=== PATIENT | female | born 1985 | race Caucasian/White ===

== ENCOUNTER → 2017-01-05 | Outpatient (REF) | payer OTHER | LOC: M LAB REF 14:42 | PROVIDERS: ATTEND Physician Assistant | DX: R30.0 Dysuria (principal) ==

== ENCOUNTER → 2017-01-24 | Outpatient (CLI) | payer OTHER ==
--- NOTE | 2017-01-24 11:30 | REP ---
MR BRAIN WITHOUT AND WITH CONTRAST: HISTORY: Multiple sclerosis. CONTRAST: ProHance 18 mL. COMPARISON: Multiple areas of increased signal intensity on T2-weighted images are present in the periventricular and subcortical white matter. Additional areas of increased signal intensity are present in the corpus callosum. These are unchanged compared to the previous study. There are no new areas of abnormal signal intensity. There is no intraparenchymal hemorrhage, infarct, mass or midline shift. There is no abnormal enhancement. The ventricular system is normal in appearance. There is no extracerebral collection. The sinuses are clear. IMPRESSION: The above findings are consistent with multiple sclerosis that are unchanged compared the previous study. Signed by Severino Mcmillan MD 01/24/2017 11:42 A
== END ==
LOC: M RAD 09:42
PROVIDERS: ATTEND Physician Assistant
DX: G35 Multiple sclerosis (principal)

== ENCOUNTER → 2017-06-12 | Outpatient (CLI) | payer OTHER ==
[~2017-06-12] MED LIST: PROHANCE 279.3MG/ML 15ML VIAL (A9576) As Ordered ONE; PROHANCE 279.3MG/ML 5ML VIAL (A9576) As Ordered ONE
--- NOTE | 2017-06-12 20:00 | REPUSA ---
MRI cervical spine without contrast Clinical statement: Pain. Technique: Multiecho multiplanar MRI images of the cervical spine were obtained without administratio n of contrast. No comparison is available. Findings: The cervical vertebral bodies are in satisfactory position and alignment. No fractures or d islocations are demonstrated. Normal heterogeneous bone marrow signal is noted. No osseous tumors are seen. The visualized portions of the posterior fossa are unremarkable. The cervical cranial junction is intact. The intervertebral disc spaces and heights are well-maintained. The facet joints are inta ct without evidence of subluxation. The cervical spinal cord demonstrates normal signal and contour. The surrounding soft tissues are within normal limits. At the cervical vertebral levels, there is no evidence of disc herniation or protrusion. There is no central canal stenosis. The neural foramina are patent bilaterally. Impression: Unremarkable MRI examination of the cervical spine.
--- NOTE | 2017-06-12 20:00 | REPUSA ---
MRI of the thoracic spine without contrast Clinical statement: Pain. Technique: Multiecho multiplanar MRI images of the thoracic spine were obtained without administratio n of contrast. No comparison is available. Findings: The thoracic vertebral bodies are in satisfactory position and alignment. No fractures or d islocations are demonstrated. The bone marrow appears unremarkable. Intervertebral disc spaces are we ll maintained. There is no evidence of disc herniation or protrusion. The neural foramen are patent. The facet joints are intact. The surrounding soft tissues are within normal limits. Impression: Unremarkable MRI examination of the thoracic spine.
== END ==
LOC: M RAD 16:33
PROVIDERS: ATTEND Nurse Practitioner
DX: G35 Multiple sclerosis (principal)
CPT/HCPCS: 72156; 72157; A9576

== ENCOUNTER → 2019-10-08 | Outpatient (CLI) | payer OTHER ==
--- NOTE | 2019-10-08 12:14 | REPVR ---
PROCEDURE INFORMATION: Exam: MR Head Without and With Contrast Exam date and time: 10/08/2019 11:43 AM Age: 34 years old Clinical indication: Condition or disease; Multiple sclerosis; Patient HX: Yearly f/u; Additional info: Ms TECHNIQUE: Imaging protocol: MR of the head without and with intravenous contrast. 3D rendering: MIP and/or 3D reconstructed images were created by the technologist. Contrast material: PROHANCE; Contrast volume: 20 ml; Contrast route: IV; COMPARISON: MRI-Brain W/O FOLL BY WITH 01/24/2017 9:46 AM FINDINGS: Brain: There is no extra-axial collection or intra-axial mass. Mild diffuse volume loss is out of proportion to what is expected for patient age. As before, there are scattered foci T2/FLAIR hyperintensity within the periventricular and subcortical white matter, many with a perivenular distribution compatible with submitted history of demyelinating disease. There is some corresponding T1 hypointensity, particularly along the right de la torre radiata, compatible with axonal loss. There is no enhancement to suggest active demyelination. Ventricles: Ventricles are normal in size and configuration for age. Bones/joints: Unremarkable. Soft tissues: Unremarkable. Sinuses: Normal as visualized. No acute sinusitis. Mastoid air cells: Normal as visualized. No mastoid effusion. Orbits: Unremarkable. IMPRESSION: Findings compatible with demyelinating disease. Stable plaque burden. Electronically signed by: Isabela Martinez On 10/08/2019 12:13:48 PM
--- NOTE | 2019-10-08 12:20 | REPVR ---
PROCEDURE INFORMATION: Exam: MR Cervical Spine Without and With Contrast Exam date and time: 10/08/2019 11:43 AM Age: 34 years old Clinical indication: Condition or disease; Other: Ms; Patient HX: Yearly f/u TECHNIQUE: Imaging protocol: Multiplanar magnetic resonance images of the cervical spine without and with intravenous contrast. Contrast material: PROHANCE; Contrast volume: 20 ml; Contrast route: IV; COMPARISON: MRI-C SPINE W/O FOLL BY WITH 06/12/2017 5:34 PM FINDINGS: Vertebrae: There is straightening of the normal cervical lordosis. There is no fracture or listhesis. Normal vertebral body alignment and heights are preserved. Spinal cord: There is a tiny focus of T2/FLAIR hyperintensity situated along the ventral margin of C1. There is no enhancement to suggest active demyelination. C2-C3: There is a shallow disc osteophyte complex. There is moderate facet hypertrophy. There is moderate to severe bilateral neural foraminal narrowing. C3-C4: There is a shallow disc osteophyte complex. There is mild facet hypertrophy. There is moderate to severe left neural foraminal narrowing. C4-C5: No significant disc disease. No significant spinal stenosis. C5-C6: There is a shallow disc osteophyte complex. There is mild facet hypertrophy. The spinal canal and neural foramina are patent. C6-C7: There is a shallow disc osteophyte complex. There is mild facet hypertrophy. The spinal canal and neural foramina are patent. C7-T1: There is a shallow disc osteophyte complex. The spinal canal and neural foramina are patent. Vertebral arteries: Expected flow voids in the vertebral arteries. Soft tissues: Unremarkable. IMPRESSION: Punctate focus of T2 hyperintensity along the ventral margin of the cord at the C1 level, potentially a tiny focus of the myelination versus artifact. This was not apparent on the preceding examination. There is no enhancement to suggest active demyelination. Electronically signed by: Isabela Martinez On 10/08/2019 12:20:32 PM
== END ==
LOC: M RAD 09:51
PROVIDERS: ATTEND Nurse Practitioner
DX: G35 Multiple sclerosis (principal); M25.78 Osteophyte, vertebrae
CPT/HCPCS: 70553; 72156; A9576

== ENCOUNTER → 2020-11-16 | Outpatient (CLI) | payer OTHER ==
[~2020-11-16] MED LIST changes: -PROHANCE 279.3MG/ML 15ML VIAL (A9576) As Ordered ONE; +PROHANCE 279.3MG/ML 15ML VIAL As Ordered ONE; -PROHANCE 279.3MG/ML 5ML VIAL (A9576) As Ordered ONE; +PROHANCE 279.3MG/ML 5ML VIAL As Ordered ONE
--- NOTE | 2020-11-16 19:15 | REPVR ---
PROCEDURE INFORMATION: Exam: MR Cervical Spine Without and With Contrast Exam date and time: 11/16/2020 4:35 PM Age: 35 years old Clinical indication: Condition or disease; Other: Ms; Additional info: Multiple sclerosis TECHNIQUE: Imaging protocol: Multiplanar magnetic resonance images of the cervical spine without and with contrast. Contrast material: PROHANCE; Contrast volume: 20 ml; Contrast route: INTRAVENOUS (IV); COMPARISON: MRI-C SPINE W/O FOLL BY WITH 10/08/2019 10:52 AM FINDINGS: There is patient motion. Nonspecific straightening. Vertebral body height and AP alignment is preserved. Negative for discitis/osteomyelitis. No definite abnormal cord signal or cord expansion. No epidural fluid collection. No pathologic enhancement. C2-C3: No significant central canal stenosis. Left greater than right uncinate spurring and facet joint arthropathy contributing to [id number] right and moderate to severe left foraminal stenosis. C3-C4: No significant central canal stenosis. Left greater than right uncinate spurring and facet joint arthropathy contribute to moderate left foraminal stenosis. C4-C5: No significant central or foraminal stenosis. C5-C6: Minimal disc osteophyte complex without significant central or foraminal stenosis. C6-C7: Mild disc osteophyte complex with superimposed shallow left central protrusion. There is mild central canal stenosis. No significant foraminal stenosis. C7-T1: No significant central or foraminal stenosis. IMPRESSION: 1. Patient motion without definite pathologic cord signal. 2. Degenerative findings as above including mild central canal stenosis at C6-C7. No high-grade central canal stenosis or cord compression. Electronically signed by: Antoine Haider On 11/16/2020 19:15:43 PM
--- NOTE | 2020-11-16 19:19 | REPVR ---
PROCEDURE INFORMATION: Exam: MR Head Without and With Contrast Exam date and time: 11/16/2020 4:35 PM Age: 35 years old Clinical indication: Condition or disease; Multiple sclerosis TECHNIQUE: Imaging protocol: MR of the head without and with intravenous contrast. Contrast material: PROHANCE; Contrast volume: 20 ml; Contrast route: INTRAVENOUS (IV); COMPARISON: MRI-Brain W/O FOLL BY WITH 10/08/2019 10:36 AM FINDINGS: Major vascular flow voids at the skull base are preserved. No extra-axial fluid collection. No hydrocephalus. No midline shift or intracranial mass effect. White matter lesions are stable in the interval. No cerebral edema. No diffusion restriction. No pathologic intracranial enhancement. Visualized paranasal sinuses and mastoid air cells are clear. IMPRESSION: 1. Findings of demyelination, stable from prior examination. 2. No evidence of active demyelination. Electronically signed by: Antoine Haider On 11/16/2020 19:19:30 PM
== END ==
LOC: M RAD 16:29
PROVIDERS: ATTEND Physician Assistant
DX: G35 Multiple sclerosis (principal); M25.78 Osteophyte, vertebrae
CPT/HCPCS: 70553; 72156; A9576

== ENCOUNTER → 2021-05-20 | Outpatient (CLI) | payer OTHER ==
[~2021-05-20] MED LIST changes: -PROHANCE 279.3MG/ML 15ML VIAL As Ordered ONE; +PROHANCE 279.3MG/ML 15ML VIAL ONE; -PROHANCE 279.3MG/ML 5ML VIAL As Ordered ONE; +PROHANCE 279.3MG/ML 5ML VIAL ONE
--- NOTE | 2021-05-20 14:09 | REPVR ---
PROCEDURE INFORMATION: Exam: MR Cervical Spine Without and With Contrast Exam date and time: 05/20/2021 11:08 AM Age: 36 years old Clinical indication: Condition or disease; Other: Ms TECHNIQUE: Imaging protocol: Multiplanar magnetic resonance images of the cervical spine without and with contrast. Contrast material: PROHANCE; Contrast volume: 20 ml; Contrast route: INTRAVENOUS (IV); COMPARISON: MRI-C SPINE W/O FOLL BY WITH 11/16/2020 5:12 PM FINDINGS: Vertebrae: There is no acute fracture or listhesis. Spinal cord: The cervicomedullary junction and cervical cord appear grossly normal. There is no abnormal enhancement. C2-C3: There is a shallow disc osteophyte complex. There is mild facet hypertrophy. There is moderate to severe bilateral neural foraminal narrowing. C3-C4: There is a shallow disc osteophyte complex. There is moderate facet hypertrophy. There is severe left neural foraminal narrowing. C4-C5: There is a shallow disc osteophyte complex. There is moderate facet hypertrophy. The spinal canal and neural foramina are patent. C5-C6: There is a shallow disc osteophyte complex. There is moderate facet hypertrophy. The spinal canal and neural foramina are patent. C6-C7: There is a shallow disc osteophyte complex with a superimposed left paracentral/subarticular protrusion and annular tear. This focally indents the ventral thecal sac. There is mild facet hypertrophy. The neural foramina are patent. C7-T1: No significant disc disease. No significant spinal stenosis. Soft tissues: Unremarkable. Vertebral arteries: Expected flow voids in the vertebral arteries. IMPRESSION: 1. No evidence of demyelinating disease within the cervical cord. 2. Degenerative disc disease and spondylosis. Electronically signed by: Isabela Martinez On 05/20/2021 14:09:24 PM
--- NOTE | 2021-05-20 14:13 | REPVR ---
PROCEDURE INFORMATION: Exam: MR Head Without and With Contrast Exam date and time: 05/20/2021 11:08 AM Age: 36 years old Clinical indication: Condition or disease; Multiple sclerosis; Additional info: Ms TECHNIQUE: Imaging protocol: MR of the head without and with intravenous contrast. Contrast material: PROHANCE; Contrast volume: 20 ml; Contrast route: INTRAVENOUS (IV); COMPARISON: MRI-Brain W/O FOLL BY WITH 11/16/2020 5:12 PM FINDINGS: Brain: There is no extra-axial collection or intra-axial mass. There are foci of increased T2/FLAIR hyperintensity within the periventricular and juxtacortical white matter, many with a perivenular distribution, compatible with submitted history of demyelinating disease. There is a new demyelinating plaque within the left posterior centrum semiovale with associated enhancement, compatible with active demyelination. Cerebral ventricles: Normal. No ventriculomegaly. Bones/joints: Unremarkable. Paranasal sinuses: Normal as visualized. No acute sinusitis. Mastoid air cells: Normal as visualized. No mastoid effusion. Orbital cavity: Unremarkable. Soft tissues: Unremarkable. IMPRESSION: Findings compatible with submitted history of demyelinating disease. New demyelinating plaque within the left posterior centrum semiovale demonstrates enhancement, compatible with active demyelination. Electronically signed by: Isabela Martinez On 05/20/2021 14:12:46 PM
== END ==
LOC: M PLAIMG 09:25
PROVIDERS: ATTEND Physician Assistant
DX: G35 Multiple sclerosis (principal)
CPT/HCPCS: 70553; 72156; A9576

== ENCOUNTER 2021-08-03 10:30 | Outpatient (CLI) | payer OTHER ==
[~2021-08-03] VITALS: Ht 160 cm; Wt 98.6 kg
[~2021-08-03 10:30] MED LIST changes: +ALBUTEROL SULFATE 2.5 MG/0.5 ML INH NEB SOLN INH PRN; +EPINEPHrine INJ 1 MG/ML 1ML AMP IM PRN; +NS 1,000 ML IV SCH; -PROHANCE 279.3MG/ML 15ML VIAL ONE; -PROHANCE 279.3MG/ML 5ML VIAL ONE; +diphenhydrAMINE 50MG/ML VIAL (J1200) IV PRN; +methylPREDNISolone 125MG 2ML VIAL IV PRN
[2021-08-03 10:40] VITALS: BP 138/75
[2021-08-03] MEDS ORDERED: NATALIZUMAB OVER 1 HOUR IV ONE ×2 (11:00)
[2021-08-03] MEDS ORDERED: BUPR300T92 PO (11:09)
[2021-08-03] MEDS ORDERED: SYNT125T PO (11:09)
[2021-08-03] MEDS ORDERED: FLUO20CA22 PO (11:09)
[2021-08-03 11:48] VITALS: BP 138/75
[2021-08-03] MEDS ORDERED: ALLE1TAB23 PO (12:28)
[2021-08-03 12:55] VITALS: BP 135/77
== END 2021-08-03 12:55 | disposition home or self-care (01) ==
LOC: M INFU 10:30
PROVIDERS: ATTEND Physician Assistant
DX: G35 Multiple sclerosis (principal)
CPT/HCPCS: 96365; J2323

== ENCOUNTER 2021-08-31 11:01 | Outpatient (CLI) | payer OTHER ==
[~2021-08-31] VITALS: Ht 160 cm; Wt 98.6 kg
[~2021-08-31 11:01] MED LIST changes: +ALLE1TAB23 PO; +BUPR300T92 PO; +FLUO20CA22 PO; +NATALIZUMAB OVER 1 HOUR IV ONE; +SYNT125T PO
[2021-08-31 11:20] VITALS: BP 146/82
[2021-08-31 13:30] VITALS: BP 128/72
== END 2021-08-31 13:30 | disposition home or self-care (01) ==
LOC: M INFU 11:01
PROVIDERS: ATTEND Physician Assistant
DX: G35 Multiple sclerosis (principal)
CPT/HCPCS: 96365; J2323

== ENCOUNTER 2021-09-29 10:40 | Outpatient (CLI) | payer OTHER ==
[~2021-09-29] VITALS: Ht 162.6 cm; Wt 100.0 kg
[~2021-09-29 10:40] MED LIST changes: -ALBUTEROL SULFATE 2.5 MG/0.5 ML INH NEB SOLN INH PRN; -EPINEPHrine INJ 1 MG/ML 1ML AMP IM PRN; -NATALIZUMAB OVER 1 HOUR IV ONE; -NS 1,000 ML IV SCH; -diphenhydrAMINE 50MG/ML VIAL (J1200) IV PRN; -methylPREDNISolone 125MG 2ML VIAL IV PRN
[2021-09-29 10:53] VITALS: BP 128/71
[2021-09-29] MEDS ORDERED: methylPREDNISolone 125MG 2ML VIAL IV PRN (11:00)
[2021-09-29] MEDS ORDERED: diphenhydrAMINE 50MG/ML VIAL (J1200) IV PRN (11:00)
[2021-09-29] MEDS ORDERED: NS 1,000 ML IV SCH (11:00)
[2021-09-29] MEDS ORDERED: NATALIZUMAB OVER 1 HOUR IV ONE ×2 (11:00)
[2021-09-29] MEDS ORDERED: EPINEPHrine INJ 1 MG/ML 1ML AMP IM PRN (11:00)
[2021-09-29] MEDS ORDERED: ALBUTEROL SULFATE 2.5 MG/0.5 ML INH NEB SOLN INH PRN (11:00)
[2021-09-29 12:07] VITALS: BP 126/71
== END 2021-09-29 12:10 | disposition home or self-care (01) ==
LOC: M INFU 10:40
PROVIDERS: ATTEND Physician Assistant
DX: G35 Multiple sclerosis (principal)
CPT/HCPCS: 96365; J2323

== ENCOUNTER 2021-10-26 14:38 | Outpatient (CLI) | payer OTHER ==
[~2021-10-26] VITALS: Ht 162.6 cm; Wt 100.0 kg
[~2021-10-26 14:38] MED LIST changes: +ALBUTEROL SULFATE 2.5 MG/0.5 ML INH NEB SOLN INH PRN; +EPINEPHrine INJ 1 MG/ML 1ML AMP IM PRN; +diphenhydrAMINE 50MG/ML VIAL (J1200) IV PRN; +methylPREDNISolone 125MG 2ML VIAL IV PRN
[2021-10-26 14:40] VITALS: BP 130/77
[2021-10-26] MEDS ORDERED: NS 1,000 ML IV SCH (15:30)
[2021-10-26] MEDS ORDERED: NATALIZUMAB OVER 1 HOUR IV ONE ×2 (15:30)
[2021-10-26 16:03] VITALS: BP 123/72
== END 2021-10-26 16:05 | disposition home or self-care (01) ==
LOC: M INFU 14:38
PROVIDERS: ATTEND Physician Assistant
DX: G35 Multiple sclerosis (principal)
CPT/HCPCS: 96365; J2323

== ENCOUNTER 2021-11-23 15:39 | Outpatient (CLI) | payer OTHER ==
[~2021-11-23] VITALS: Ht 162.6 cm; Wt 98.6 kg
[~2021-11-23 15:39] MED LIST changes: +NATALIZUMAB OVER 1 HOUR IV ONE; +NS 1,000 ML IV SCH
[2021-11-23 15:40] VITALS: BP 130/76
[2021-11-23] MEDS ORDERED: VITAMIN D PO (16:08)
[2021-11-23 17:20] VITALS: BP 130/70
== END 2021-11-23 17:20 | disposition home or self-care (01) ==
LOC: M INFU 15:39
PROVIDERS: ATTEND Physician Assistant
DX: G35 Multiple sclerosis (principal)
CPT/HCPCS: 96365; J2323

== ENCOUNTER → 2021-12-20 | Outpatient (CLI) | payer OTHER ==
[~2021-12-20] MED LIST changes: -ALBUTEROL SULFATE 2.5 MG/0.5 ML INH NEB SOLN INH PRN; -EPINEPHrine INJ 1 MG/ML 1ML AMP IM PRN; -NATALIZUMAB OVER 1 HOUR IV ONE; -NS 1,000 ML IV SCH; +VITAMIN D PO; -diphenhydrAMINE 50MG/ML VIAL (J1200) IV PRN; -methylPREDNISolone 125MG 2ML VIAL IV PRN
[2021-12-20 15:03] LABS: FREE T4 1.25 NG/DL (0.76-1.46); THYROID STIMULATING HORMONE 0.98 uIU/ML (0.358-3.740)
== END ==
LOC: M LAB 12:49
PROVIDERS: ATTEND Nurse Practitioner Family
DX: E06.3 Autoimmune thyroiditis (principal)

== ENCOUNTER 2021-12-21 10:49 | Outpatient (CLI) | payer OTHER ==
[~2021-12-21] VITALS: Ht 162.6 cm; Wt 100.0 kg
[~2021-12-21 10:49] MED LIST changes: +ALBUTEROL SULFATE 2.5 MG/0.5 ML INH NEB SOLN INH PRN; +EPINEPHrine INJ 1 MG/ML 1ML AMP IM PRN; +diphenhydrAMINE 50MG/ML VIAL (J1200) IV PRN; +methylPREDNISolone 125MG 2ML VIAL IV PRN
[2021-12-21] MEDS ORDERED: NS 1,000 ML IV SCH (11:00)
[2021-12-21] MEDS ORDERED: NATALIZUMAB OVER 1 HOUR IV ONE ×2 (11:00)
[2021-12-21 11:20] VITALS: BP 111/57
[2021-12-21 12:30] VITALS: BP 110/66
== END 2021-12-21 12:35 | disposition home or self-care (01) ==
LOC: M INFU 10:49
PROVIDERS: ATTEND Physician Assistant
DX: G35 Multiple sclerosis (principal)
CPT/HCPCS: 96365; J2323

== ENCOUNTER 2022-01-30 15:40 | Outpatient (CLI) | payer OTHER ==
[~2022-01-30] VITALS: Ht 162.6 cm; Wt 101.8 kg
[2022-01-30 15:40] VITALS: BP 119/7
[~2022-01-30 15:40] MED LIST changes: +NATALIZUMAB OVER 1 HOUR IV ONE; +NS 1,000 ML IV SCH
[2022-01-30 17:11] VITALS: BP 140/79
== END 2022-01-30 17:15 | disposition home or self-care (01) ==
LOC: M INFU 15:40
PROVIDERS: ATTEND Physician Assistant
DX: G35 Multiple sclerosis (principal)
CPT/HCPCS: 96365; J2323

== ENCOUNTER → 2022-02-06 | Outpatient (CLI) | payer OTHER, BC ==
[~2022-02-06] MED LIST changes: -ALBUTEROL SULFATE 2.5 MG/0.5 ML INH NEB SOLN INH PRN; -EPINEPHrine INJ 1 MG/ML 1ML AMP IM PRN; -NATALIZUMAB OVER 1 HOUR IV ONE; -NS 1,000 ML IV SCH; +PROHANCE 279.3MG/ML 15ML VIAL As Ordered ONE; +PROHANCE 279.3MG/ML 5ML VIAL As Ordered ONE; -diphenhydrAMINE 50MG/ML VIAL (J1200) IV PRN; -methylPREDNISolone 125MG 2ML VIAL IV PRN
== END ==
LOC: M RAD 14:41
PROVIDERS: ATTEND Physician Assistant
DX: G35 Multiple sclerosis (principal); M50.222 Other cervical disc displacement at C5-C6 level; M50.223 Other cervical disc displacement at C6-C7 level
CPT/HCPCS: 70553; 72156; A9576

== ENCOUNTER 2022-02-27 15:15 | Outpatient (CLI) | payer OTHER ==
[~2022-02-27] VITALS: Ht 162.6 cm; Wt 101.8 kg
[2022-02-27 15:15] VITALS: BP 118/68
[~2022-02-27 15:15] MED LIST changes: -PROHANCE 279.3MG/ML 15ML VIAL As Ordered ONE; -PROHANCE 279.3MG/ML 5ML VIAL As Ordered ONE
[2022-02-27] MEDS ORDERED: EPINEPHrine INJ 1 MG/ML 1ML AMP IM PRN (15:30)
[2022-02-27] MEDS ORDERED: diphenhydrAMINE 50MG/ML VIAL (J1200) IV PRN (15:30)
[2022-02-27] MEDS ORDERED: NS 1,000 ML IV SCH (15:30)
[2022-02-27] MEDS ORDERED: methylPREDNISolone 125MG 2ML VIAL IV PRN (15:30)
[2022-02-27] MEDS ORDERED: NATALIZUMAB OVER 1 HOUR IV ONE ×2 (15:30)
[2022-02-27] MEDS ORDERED: ALBUTEROL SULFATE 2.5 MG/0.5 ML INH NEB SOLN INH PRN (15:30)
[2022-02-27 16:50] VITALS: BP 133/80
== END 2022-02-27 16:50 | disposition home or self-care (01) ==
LOC: M INFU 15:15
PROVIDERS: ATTEND Physician Assistant
DX: G35 Multiple sclerosis (principal)
CPT/HCPCS: 96365; J2323

== ENCOUNTER 2022-04-07 15:20 | Outpatient (CLI) | payer OTHER ==
[~2022-04-07] VITALS: Ht 162.6 cm; Wt 101.8 kg
[~2022-04-07 15:20] MED LIST changes: +ALBUTEROL SULFATE 2.5 MG/0.5 ML INH NEB SOLN INH PRN; +EPINEPHrine INJ 1 MG/ML 1ML AMP IM PRN; +NATALIZUMAB OVER 1 HOUR IV ONE; +NS 1,000 ML IV SCH; +diphenhydrAMINE 50MG/ML VIAL (J1200) IV PRN; +methylPREDNISolone 125MG 2ML VIAL IV PRN
[2022-04-07 15:23] VITALS: BP 134/82
[2022-04-07] MEDS ORDERED: NS 1,000 ML IV SCH (15:30)
[2022-04-07] MEDS ORDERED: NATALIZUMAB OVER 1 HOUR IV ONE ×2 (15:30)
[2022-04-07 16:44] VITALS: BP 125/76
== END 2022-04-07 16:45 | disposition home or self-care (01) ==
LOC: M INFU 15:20
PROVIDERS: ATTEND Physician Assistant
DX: G35 Multiple sclerosis (principal)
CPT/HCPCS: 96365; J2323

== ENCOUNTER → 2022-04-27 | Outpatient (REF) | payer OTHER, BC ==
[~2022-04-27] MED LIST changes: -ALBUTEROL SULFATE 2.5 MG/0.5 ML INH NEB SOLN INH PRN; -EPINEPHrine INJ 1 MG/ML 1ML AMP IM PRN; -NATALIZUMAB OVER 1 HOUR IV ONE; -NS 1,000 ML IV SCH; -diphenhydrAMINE 50MG/ML VIAL (J1200) IV PRN; -methylPREDNISolone 125MG 2ML VIAL IV PRN
[2022-04-27 12:31] LABS: BASO # 0.1 10^3/uL (0.0-0.2); BASO % 0.6 % (0.0-1.0); EOS # 0.1 10^3/uL (0.0-0.5); EOS % 1.6 % (0.0-3.0); HEMATOCRIT 41.2 % (36.0-47.0); HEMOGLOBIN 13.2 g/dl (12.0-15.5); LYMPH # 3.3 10^3/uL (1.5-5.0); LYMPH % 39.4 % (24.0-44.0); MEAN CORPUSCULAR HEMOGLOBIN 30.3 pg (27.0-33.0); MEAN CORPUSCULAR VOLUME 94.7 fl (80.0-96.0); MONO # 0.5 10^3/uL (0.0-0.8); MONO % 5.9 % (2.0-8.0); NEUTROPHILS # 4.3 10^3/uL (1.5-8.5); NEUTROPHILS % 51.8 % (36.0-66.0); PLATELET COUNT, AUTOMATED 322 10^3/uL (150-450); RED BLOOD COUNT 4.35 10^6/uL (4.00-5.40); WHITE BLOOD COUNT 8.2 10^3/uL (4.0-10.0)
[2022-04-27 12:55] LABS: ERYTHROCYTE SEDIMENTATION RATE 22 mm/hr (0-20)
[2022-04-27 13:10] LABS: ALBUMIN 3.6 GM/DL (3.2-5.2); ALT/SGPT 20 U/L (12-78); BILIRUBIN,TOTAL 0.3 MG/DL (0.2-1.0); BLOOD UREA NITROGEN 12 MG/DL (7-18); C REACTIVE PROTEIN QUANTITATIV 0.42 MG/DL (0.00-0.30); CARBON DIOXIDE LEVEL 25 MEQ/L (21-32); CHLORIDE LEVEL 106 MEQ/L (98-107); CREATININE FOR GFR 0.92 MG/DL (0.55-1.30); GLOMERULAR FILTRATION RATE > 60.0 (>60); GLUCOSE, FASTING 80 MG/DL (70-100); POTASSIUM SERUM 4.6 MEQ/L (3.5-5.1); SODIUM LEVEL 137 MEQ/L (136-145)
[2022-05-03 15:08] LABS: ANA (HEP2) Negative (.); CYCLIC CITRULLINATED PEPTIDE 8 units (0-19); HLA-B27 Negative (.)
== END ==
LOC: M SFHCRHEU 08:51
PROVIDERS: ATTEND Internal Medicine Rheumatology
DX: M35.3 Polymyalgia rheumatica (principal)

== ENCOUNTER 2022-05-05 10:30 | Outpatient (CLI) | payer OTHER ==
[~2022-05-05] VITALS: Ht 162.6 cm; Wt 101.0 kg
[2022-05-05 10:30] VITALS: BP 119/69
[~2022-05-05 10:30] MED LIST changes: +ALBUTEROL SULFATE 2.5 MG/0.5 ML INH NEB SOLN INH PRN; +EPINEPHrine INJ 1 MG/ML 1ML AMP IM PRN; +diphenhydrAMINE 50MG/ML VIAL (J1200) IV PRN; +methylPREDNISolone 125MG 2ML VIAL IV PRN
[2022-05-05] MEDS ORDERED: NATALIZUMAB OVER 1 HOUR IV ONE ×2 (11:00)
[2022-05-05] MEDS ORDERED: NS 1,000 ML IV SCH (11:00)
[2022-05-05 12:08] VITALS: BP 118/70
== END 2022-05-05 12:10 ==
LOC: M INFU 10:30
PROVIDERS: ATTEND Physician Assistant
DX: G35 Multiple sclerosis (principal)
CPT/HCPCS: 96365; J2323

== ENCOUNTER → 2022-05-12 | Outpatient (CLI) | payer OTHER, BC ==
[~2022-05-12] MED LIST changes: -ALBUTEROL SULFATE 2.5 MG/0.5 ML INH NEB SOLN INH PRN; -EPINEPHrine INJ 1 MG/ML 1ML AMP IM PRN; -diphenhydrAMINE 50MG/ML VIAL (J1200) IV PRN; -methylPREDNISolone 125MG 2ML VIAL IV PRN
== END ==
LOC: M RAD 10:25
PROVIDERS: ATTEND Internal Medicine Rheumatology
DX: M35.3 Polymyalgia rheumatica (principal); M77.31 Calcaneal spur, right foot; M77.32 Calcaneal spur, left foot

== ENCOUNTER → 2022-05-12 | Outpatient (CLI) | payer OTHER, BC ==
[2022-05-12 11:22] LABS: HEMATOCRIT 40.3 % (36.0-47.0); MEAN CORPUSCULAR HEMOGLOBIN 30.4 pg (27.0-33.0); MEAN CORPUSCULAR HGB CONC 32.3 g/dl (32.0-36.5); MEAN CORPUSCULAR VOLUME 94.2 fl (80.0-96.0); PLATELET COUNT, AUTOMATED 357 10^3/uL (150-450); RED BLOOD COUNT 4.28 10^6/uL (4.00-5.40)
[2022-05-12 12:06] LABS: ATYPICAL LYMPH 19 % (0-5); EOSINOPHILS 2 % (0-3); LYMPHOCYTES 30 % (16-44); MONOCYTES 6 % (0-5); NEUTROPHILS 43 % (28-66); PLATELET ESTIMATE NORMAL (NORMAL)
[2022-05-12 12:10] LABS: ALBUMIN 3.6 GM/DL (3.2-5.2); ALT/SGPT 30 U/L (12-78); BILIRUBIN,TOTAL 0.4 MG/DL (0.2-1.0); BLOOD UREA NITROGEN 11 MG/DL (7-18); CALCIUM LEVEL 8.8 MG/DL (8.5-10.1); CARBON DIOXIDE LEVEL 27 MEQ/L (21-32); CHLORIDE LEVEL 105 MEQ/L (98-107); CHOLESTEROL LEVEL 221 MG/DL (<200); CHOLESTEROL RISK RATIO 3.564 (<5); CREATININE FOR GFR 0.84 MG/DL (0.55-1.30); GLOMERULAR FILTRATION RATE > 60.0 (>60); GLUCOSE, FASTING 87 MG/DL (70-100); HDL CHOLESTEROL 62 MG/DL (>40); LDL CHOLESTEROL 133 MG/DL (<100); NON-HDL-C 159 MG/DL; POTASSIUM SERUM 4.4 MEQ/L (3.5-5.1); SODIUM LEVEL 136 MEQ/L (136-145); TOTAL PROTEIN 6.8 GM/DL (6.4-8.2); TRIGLYCERIDES LEVEL 130 MG/DL (<150)
[2022-05-12 12:56] LABS: TOTAL 25(OH) VITAMIN D 39.6 NG/ML (30.0-100.0)
== END ==
LOC: M LAB 10:28
PROVIDERS: ATTEND Family Medicine
DX: E06.3 Autoimmune thyroiditis (principal); Z13.29 Encounter for screening for other suspected endocrine disorder; Z13.220 Encounter for screening for lipoid disorders

== ENCOUNTER 2022-06-02 15:25 | Outpatient (CLI) | payer OTHER ==
[~2022-06-02] VITALS: Ht 162.6 cm; Wt 101.8 kg
[2022-06-02 15:25] VITALS: BP 156/88
[~2022-06-02 15:25] MED LIST changes: +ALBUTEROL SULFATE 2.5 MG/0.5 ML INH NEB SOLN INH PRN; +EPINEPHrine INJ 1 MG/ML 1ML AMP IM PRN; +diphenhydrAMINE 50MG/ML VIAL IV PRN; +methylPREDNISolone 125MG 2ML VIAL IV PRN
[2022-06-02 15:26] VITALS: BP 106/56
[2022-06-02] MEDS ORDERED: NATALIZUMAB OVER 1 HOUR IV ONE ×2 (15:30)
[2022-06-02] MEDS ORDERED: NS 1,000 ML IV SCH (15:30)
[2022-06-02 17:05] VITALS: BP 115/60
== END 2022-06-02 17:05 | disposition home or self-care (01) ==
LOC: M INFU 15:25
PROVIDERS: ATTEND Physician Assistant
DX: G35 Multiple sclerosis (principal)
CPT/HCPCS: 96365; J2323

== ENCOUNTER → 2022-06-05 | Outpatient (REF) | payer OTHER ==
[~2022-06-05] MED LIST changes: -ALBUTEROL SULFATE 2.5 MG/0.5 ML INH NEB SOLN INH PRN; -EPINEPHrine INJ 1 MG/ML 1ML AMP IM PRN; -diphenhydrAMINE 50MG/ML VIAL IV PRN; -methylPREDNISolone 125MG 2ML VIAL IV PRN
[2022-06-05 22:15] LABS: APPEARANCE, URINE MANUAL CLEAR (CLEAR); COLOR, URINE MANUAL ORANGE (YELLOW)
[2022-06-05 22:16] LABS: BILIRUBIN, URINE MANUAL OBSCURED (NEGATIVE); BLOOD URINE MANUAL OBSCURED (NEGATIVE); GLUCOSE, URINE (UA) MANUAL OBSCURED mg/dL (NEGATIVE); KETONE, URINE MANUAL OBSCURED mg/dL (NEGATIVE); LEUKOCYTE ESTERASE, URINE MAN OBSCURED (NEGATIVE); NITRITE, URINE MANUAL OBSCURED (NEGATIVE); PROTEIN, URINE MANUAL OBSCURED mg/dL (NEGATIVE); UROBILINOGEN, URINE MANUAL OBSCURED mg/dl (NORMAL)
[2022-06-05 22:39] LABS: AMORPHOUS SEDIMENT, URINE MOD AMOUNT (NEGATIVE); BACTERIA, URINE NONE SEEN; HYALINE CAST, URINE NONE SEEN /lpf (0-1); MUCUS, URINE SMALL AMOUNT (NEGATIVE); SQUAMOUS EPITHELIAL CELL URINE SMALL AMOUNT /hpf (SMALL AMT); WBC, URINE 20-30 /hpf (0-3)
== END ==
LOC: M LAB REF 21:58
PROVIDERS: ATTEND Physician Assistant Medical
DX: N39.0 Urinary tract infection, site not specified (principal)

== ENCOUNTER → 2022-06-20 | Outpatient (CLI) | payer OTHER, BC ==
[2022-06-20 18:21] LABS: FREE T4 1.17 NG/DL (0.89-1.76); THYROID STIMULATING HORMONE 2.621 uIU/ML (0.55-4.78)
== END ==
LOC: M LAB 16:37
PROVIDERS: ATTEND Nurse Practitioner Adult Health
DX: E06.3 Autoimmune thyroiditis (principal)

== ENCOUNTER → 2022-06-28 | Outpatient (CLI) | payer OTHER, BC | LOC: M SLEEP HO 14:13 | PROVIDERS: ATTEND Family Medicine | DX: R06.83 Snoring (principal) ==

== ENCOUNTER 2022-07-05 15:15 | Outpatient (CLI) | payer OTHER, BC ==
[~2022-07-05] VITALS: Ht 162.6 cm; Wt 101.8 kg
[~2022-07-05 15:15] MED LIST changes: +ALBUTEROL SULFATE 2.5 MG/0.5 ML INH NEB SOLN INH PRN; +EPINEPHrine INJ 1 MG/ML 1ML AMP IM PRN; +NATALIZUMAB OVER 1 HOUR IV ONE; +NS 1,000 ML IV SCH; +diphenhydrAMINE 50MG/ML VIAL IV PRN; +methylPREDNISolone 125MG 2ML VIAL IV PRN
[2022-07-05 15:20] VITALS: BP 116/55
[2022-07-05] MEDS ORDERED: NATALIZUMAB OVER 1 HOUR IV ONE ×4 (15:30)
[2022-07-05] MEDS ORDERED: NS 1,000 ML IV SCH (15:30)
== END 2022-07-05 17:00 ==
LOC: M INFU 15:15
PROVIDERS: ATTEND Physician Assistant
DX: G35 Multiple sclerosis (principal)
CPT/HCPCS: 96365; J2323

== ENCOUNTER 2022-08-02 15:12 | Outpatient (CLI) | payer OTHER, BC ==
[~2022-08-02] VITALS: Ht 160 cm; Wt 103.6 kg
[~2022-08-02 15:12] MED LIST changes: -ALBUTEROL SULFATE 2.5 MG/0.5 ML INH NEB SOLN INH PRN; -EPINEPHrine INJ 1 MG/ML 1ML AMP IM PRN; -NATALIZUMAB OVER 1 HOUR IV ONE; -NS 1,000 ML IV SCH; -diphenhydrAMINE 50MG/ML VIAL IV PRN; -methylPREDNISolone 125MG 2ML VIAL IV PRN
[2022-08-02 15:30] VITALS: BP 111/58
[2022-08-02] MEDS ORDERED: NATALIZUMAB OVER 1 HOUR IV ONE ×2 (15:30)
[2022-08-02 17:00] VITALS: BP 129/68
== END 2022-08-02 17:05 | disposition home or self-care (01) ==
LOC: M INFU 15:12
PROVIDERS: ATTEND Physician Assistant
DX: G35 Multiple sclerosis (principal)
CPT/HCPCS: 96365; J2323

== ENCOUNTER 2022-08-30 15:20 | Outpatient (CLI) | payer OTHER ==
[~2022-08-30] VITALS: Ht 160 cm; Wt 103.6 kg
[2022-08-30 15:20] VITALS: BP 130/75
[~2022-08-30 15:20] MED LIST changes: +ALBUTEROL SULFATE 2.5MG/0.5ML INH NEB SOLN INH PRN; +EPINEPHrine INJ 1 MG/ML 1ML AMP IM PRN; +NS 1,000 ML IV ONE; +diphenhydrAMINE 50MG/ML VIAL IV PRN; +methylPREDNISolone 125MG 2ML VIAL IV PRN
[2022-08-30] MEDS ORDERED: NATALIZUMAB OVER 1 HOUR IV ONE ×2 (15:30)
[2022-08-30 16:35] VITALS: BP 130/75
[2022-08-30 17:00] VITALS: BP 128/67
== END 2022-08-30 17:00 | disposition home or self-care (01) ==
LOC: M INFU 15:20
PROVIDERS: ATTEND Physician Assistant
DX: G35 Multiple sclerosis (principal)
CPT/HCPCS: 96365; J2323

== ENCOUNTER 2022-09-27 15:15 | Outpatient (CLI) | payer OTHER, BC ==
[~2022-09-27] VITALS: Ht 160 cm; Wt 103.6 kg
[~2022-09-27 15:15] MED LIST changes: -NS 1,000 ML IV ONE
[2022-09-27] MEDS ORDERED: NS 1,000 ML IV SCH (15:30)
[2022-09-27] MEDS ORDERED: NATALIZUMAB OVER 1 HOUR IV ONE ×2 (15:30)
[2022-09-27 15:39] VITALS: BP 117/60
[2022-09-27 16:55] VITALS: BP 121/69
== END 2022-09-27 16:55 | disposition home or self-care (01) ==
LOC: M INFU 15:15
PROVIDERS: ATTEND Physician Assistant
DX: G35 Multiple sclerosis (principal)
CPT/HCPCS: 96365; J2323

== ENCOUNTER → 2022-10-02 | Outpatient (CLI) | payer OTHER ==
[~2022-10-02] MED LIST changes: -ALBUTEROL SULFATE 2.5MG/0.5ML INH NEB SOLN INH PRN; -EPINEPHrine INJ 1 MG/ML 1ML AMP IM PRN; +PROHANCE 279.3MG/ML 15ML VIAL ONE; +PROHANCE 279.3MG/ML 5ML VIAL ONE; -diphenhydrAMINE 50MG/ML VIAL IV PRN; -methylPREDNISolone 125MG 2ML VIAL IV PRN
== END ==
LOC: M PLAIMG 09:51
PROVIDERS: ATTEND Physician Assistant
DX: G35 Multiple sclerosis (principal)
CPT/HCPCS: 70553; 72156; A9576

== ENCOUNTER 2022-10-25 15:15 | Outpatient (CLI) | payer OTHER, BC ==
[~2022-10-25] VITALS: Ht 160 cm; Wt 103.6 kg
[2022-10-25 15:15] VITALS: BP 110/65
[~2022-10-25 15:15] MED LIST changes: +ALBUTEROL SULFATE 2.5MG/0.5ML INH NEB SOLN INH PRN; +EPINEPHrine INJ 1 MG/ML 1ML AMP IM PRN; -PROHANCE 279.3MG/ML 15ML VIAL ONE; -PROHANCE 279.3MG/ML 5ML VIAL ONE; +diphenhydrAMINE 50MG/ML VIAL IV PRN; +methylPREDNISolone 125MG 2ML VIAL IV PRN
[2022-10-25] MEDS ORDERED: NS 1,000 ML IV SCH (15:30)
[2022-10-25] MEDS ORDERED: NATALIZUMAB OVER 1 HOUR IV ONE ×2 (15:30)
[2022-10-25 16:48] VITALS: BP 106/57
== END 2022-10-25 16:50 | disposition home or self-care (01) ==
LOC: M INFU 15:15
PROVIDERS: ATTEND Physician Assistant
DX: G35 Multiple sclerosis (principal)
CPT/HCPCS: 96365; J2323

== ENCOUNTER 2022-11-22 15:28 | Outpatient (CLI) | payer OTHER ==
[~2022-11-22] VITALS: Ht 160 cm; Wt 107.0 kg
[2022-11-22] MEDS ORDERED: NS 1,000 ML IV ONE (15:30)
[2022-11-22] MEDS ORDERED: NATALIZUMAB OVER 1 HOUR IV ONE ×2 (15:30)
[2022-11-22 15:34] VITALS: BP 132/75
[2022-11-22 17:03] VITALS: BP 129/66
== END 2022-11-22 17:00 | disposition home or self-care (01) ==
LOC: M INFU 15:28
PROVIDERS: ATTEND Physician Assistant
DX: G35 Multiple sclerosis (principal)
CPT/HCPCS: 96365; J2323

== ENCOUNTER → 2022-12-20 | Outpatient (CLI) | payer OTHER, BC ==
[~2022-12-20] VITALS: Ht 160 cm; Wt 107.0 kg
[~2022-12-20] MED LIST changes: +NATALIZUMAB OVER 1 HOUR IV ONE; +NS 1,000 ML IV SCH
[2022-12-20 15:20] VITALS: BP 120/50
[2022-12-20 16:06] VITALS: BP 120/50
[2022-12-20 16:54] VITALS: BP 142/76
== END ==
LOC: M INFU 15:20
PROVIDERS: ATTEND Physician Assistant
DX: G35 Multiple sclerosis (principal)
CPT/HCPCS: 96365; J2323

== ENCOUNTER 2023-01-25 15:15 | Outpatient (CLI) | payer OTHER, BC ==
[~2023-01-25] VITALS: Ht 162.6 cm; Wt 101.8 kg
[2023-01-25 15:15] VITALS: BP 132/74; O2SAT 97
[~2023-01-25 15:15] MED LIST changes: -NATALIZUMAB OVER 1 HOUR IV ONE; -NS 1,000 ML IV SCH
[2023-01-25] MEDS ORDERED: NS 1,000 ML IV SCH (15:30)
[2023-01-25] MEDS ORDERED: NATALIZUMAB OVER 1 HOUR IV ONE ×2 (15:30)
[2023-01-25 16:48] VITALS: BP 136/74; O2SAT 99
== END 2023-01-25 16:48 ==
LOC: M INFU 15:15
PROVIDERS: ATTEND Physician Assistant
DX: G35 Multiple sclerosis (principal)
CPT/HCPCS: 96365; J2323

== ENCOUNTER 2023-02-22 15:30 | Outpatient (CLI) | payer OTHER, BC ==
[~2023-02-22] VITALS: Ht 167.6 cm; Wt 108.2 kg
[~2023-02-22 15:30] MED LIST changes: +NATALIZUMAB OVER 1 HOUR IV ONE; +NS 1,000 ML IV SCH
[2023-02-22 15:50] VITALS: BP 179/84; O2SAT 97
[2023-02-22 17:06] VITALS: BP 128/74; O2SAT 97
== END 2023-02-22 17:10 | disposition home or self-care (01) ==
LOC: M INFU 15:30
PROVIDERS: ATTEND Physician Assistant
DX: G35 Multiple sclerosis (principal)
CPT/HCPCS: 96365; J2323

== ENCOUNTER 2023-03-22 15:15 | Outpatient (CLI) | payer OTHER, BC ==
[~2023-03-22] VITALS: Ht 162.6 cm; Wt 108.9 kg
[2023-03-22 15:15] VITALS: BP 118/63; O2SAT 97
[~2023-03-22 15:15] MED LIST changes: -NATALIZUMAB OVER 1 HOUR IV ONE; -NS 1,000 ML IV SCH
[2023-03-22] MEDS ORDERED: NATALIZUMAB OVER 1 HOUR IV ONE ×2 (15:20)
[2023-03-22] MEDS ORDERED: NS 1,000 ML IV SCH (15:25)
[2023-03-22 16:50] VITALS: BP 135/78; O2SAT 99
== END 2023-03-22 16:50 ==
LOC: M INFU 15:15
PROVIDERS: ATTEND Physician Assistant
DX: G35 Multiple sclerosis (principal)
CPT/HCPCS: 96365; J2323

== ENCOUNTER 2023-04-02 15:30 | Outpatient (CLI) | payer OTHER, BC ==
[~2023-04-02] VITALS: Ht 162.6 cm; Wt 109.0 kg
[2023-04-02 15:30] VITALS: BP 128/78; O2SAT 99
[~2023-04-02 15:30] MED LIST changes: -ALBUTEROL SULFATE 2.5MG/0.5ML INH NEB SOLN INH PRN; -EPINEPHrine INJ 1 MG/ML 1ML AMP IM PRN; -diphenhydrAMINE 50MG/ML VIAL IV PRN; +methylPREDNISolone 1,000 MG, VIAL MATE ADAPTER 1 EACH in NS 250 ML IV ONE; -methylPREDNISolone 125MG 2ML VIAL IV PRN
[2023-04-02 16:47] VITALS: BP 132/76; O2SAT 100
== END 2023-04-02 16:50 ==
LOC: M INFU 15:30
PROVIDERS: ATTEND Physician Assistant
DX: G35 Multiple sclerosis (principal)
CPT/HCPCS: 96365; J2930

== ENCOUNTER 2023-04-03 16:30 | Outpatient (CLI) | payer OTHER, BC ==
[~2023-04-03] VITALS: Ht 177.8 cm; Wt 108.8 kg
[2023-04-03 16:30] VITALS: BP 132/62; O2SAT 99
[2023-04-03 17:42] VITALS: BP 139/66; O2SAT 99
== END 2023-04-03 17:45 | disposition home or self-care (01) ==
LOC: M INFU 16:30
PROVIDERS: ATTEND Physician Assistant
DX: G35 Multiple sclerosis (principal)
CPT/HCPCS: 96365; J2930

== ENCOUNTER 2023-04-04 16:30 | Outpatient (CLI) | payer OTHER, BC ==
[~2023-04-04] VITALS: Ht 162.6 cm; Wt 109.0 kg
[2023-04-04 17:46] VITALS: BP 135/86; O2SAT 100
== END 2023-04-04 17:50 | disposition home or self-care (01) ==
LOC: M INFU 16:30
PROVIDERS: ATTEND Physician Assistant
DX: G35 Multiple sclerosis (principal)
CPT/HCPCS: 96365; J2930

== ENCOUNTER 2023-05-17 15:11 | Outpatient (CLI) | payer OTHER, BC ==
[~2023-05-17] VITALS: Ht 160 cm; Wt 104.6 kg
[~2023-05-17 15:11] MED LIST changes: +ALBUTEROL SULFATE 2.5MG/0.5ML INH NEB SOLN INH PRN; +EPINEPHrine INJ 1 MG/ML 1ML AMP IM PRN; +diphenhydrAMINE 50MG/ML VIAL IV PRN; -methylPREDNISolone 1,000 MG, VIAL MATE ADAPTER 1 EACH in NS 250 ML IV ONE; +methylPREDNISolone 125MG 2ML VIAL IV PRN
[2023-05-17] MEDS ORDERED: NS 1,000 ML IV SCH (15:30)
[2023-05-17] MEDS ORDERED: NATALIZUMAB OVER 1 HOUR IV ONE ×2 (15:30)
[2023-05-17 16:37] VITALS: BP 118/59; O2SAT 98
[2023-05-17 18:04] VITALS: BP 138/86; O2SAT 98
== END 2023-05-17 18:05 ==
LOC: M INFU 15:11
PROVIDERS: ATTEND Physician Assistant
DX: G35 Multiple sclerosis (principal)
CPT/HCPCS: 96365; J2323

== ENCOUNTER 2023-06-13 15:20 | Outpatient (CLI) | payer OTHER, BC ==
[~2023-06-13] VITALS: Ht 162.6 cm; Wt 105.0 kg
[2023-06-13 15:20] VITALS: BP 118/82; O2SAT 100
[2023-06-13] MEDS ORDERED: NS 1,000 ML IV SCH (15:30)
[2023-06-13] MEDS ORDERED: NATALIZUMAB OVER 1 HOUR IV ONE ×2 (15:30)
[2023-06-13 17:05] VITALS: BP_SYST 113; BP_SYST 118; BP_DIAS 72; BP_DIAS 82; TEMP 36.5; O2SAT 100
== END 2023-06-13 17:05 ==
LOC: M INFU 15:20
PROVIDERS: ATTEND Physician Assistant
DX: G35 Multiple sclerosis (principal)
CPT/HCPCS: 96365; J2323

== ENCOUNTER 2023-07-12 15:25 | Outpatient (CLI) | payer OTHER, BC ==
[~2023-07-12 15:25] MED LIST changes: -ALLE1TAB23 PO; +FEXO-157 PO; +NS 1,000 ML IV SCH
[2023-07-12 15:45] VITALS: BP 132/76; O2SAT 99
[2023-07-12] MEDS ORDERED: NATALIZUMAB OVER 1 HOUR IV ONE ×2 (15:45)
[2023-07-12 17:17] VITALS: BP 129/81; O2SAT 100
== END 2023-07-12 17:25 | disposition home or self-care (01) ==
LOC: M INFU 15:25
PROVIDERS: ATTEND Physician Assistant
DX: G35 Multiple sclerosis (principal)
CPT/HCPCS: 96365; J2323

== ENCOUNTER 2023-08-09 15:18 | Outpatient (CLI) | payer OTHER, BC ==
[~2023-08-09] VITALS: Ht 162.6 cm; Wt 105.0 kg
[~2023-08-09 15:18] MED LIST changes: -NS 1,000 ML IV SCH
[2023-08-09 15:25] VITALS: BP 135/65; O2SAT 97
[2023-08-09] MEDS ORDERED: NATALIZUMAB OVER 1 HOUR IV ONE ×2 (15:30)
[2023-08-09] MEDS ORDERED: NS 1,000 ML IV SCH (15:30)
[2023-08-09 16:51] VITALS: BP 132/68; O2SAT 98
== END 2023-08-09 16:51 ==
LOC: M INFU 15:18
PROVIDERS: ATTEND Physician Assistant
DX: G35 Multiple sclerosis (principal)
CPT/HCPCS: 96365; J2323

== ENCOUNTER 2023-09-06 15:30 | Outpatient (CLI) | payer OTHER, BC ==
[~2023-09-06] VITALS: Ht 162.6 cm; Wt 101.0 kg
[2023-09-06 15:30] VITALS: BP 130/77; O2SAT 97
[2023-09-06] MEDS: NATALIZUMAB OVER 1 HOUR IV ONE (15:46)
[2023-09-06] MEDS: NS 1,000 ML IV SCH (15:47)
== END 2023-09-06 16:50 ==
LOC: M INFU 15:30
PROVIDERS: ATTEND Physician Assistant
DX: G35 Multiple sclerosis (principal)
CPT/HCPCS: 96365; J2323

== ENCOUNTER 2023-10-04 15:20 | Outpatient (CLI) | payer OTHER ==
[~2023-10-04] VITALS: Ht 160 cm; Wt 102.3 kg
[~2023-10-04 15:20] MED LIST changes: +NS 1,000 ML IV SCH; -diphenhydrAMINE 50MG/ML VIAL IV PRN; -methylPREDNISolone 125MG 2ML VIAL IV PRN
[2023-10-04 15:40] VITALS: BP 109/68; O2SAT 95
[2023-10-04] MEDS: NATALIZUMAB OVER 1 HOUR IV ONE (15:43)
[2023-10-04] MEDS: diphenhydrAMINE 50MG/ML VIAL IV PRN (15:45)
[2023-10-04] MEDS: methylPREDNISolone 125MG 2ML VIAL IV PRN (15:46)
[2023-10-04 15:50] VITALS: BP 109/65; TEMP 98.2; O2SAT 95
[2023-10-04 17:00] VITALS: BP 124/84; O2SAT 99
== END 2023-10-04 17:00 ==
LOC: M INFU 15:20
PROVIDERS: ATTEND Physician Assistant
DX: G35 Multiple sclerosis (principal)
CPT/HCPCS: 96365; J2323

== ENCOUNTER → 2023-10-05 | Outpatient (REF) | payer OTHER ==
[~2023-10-05] MED LIST changes: -ALBUTEROL SULFATE 2.5MG/0.5ML INH NEB SOLN INH PRN; -EPINEPHrine INJ 1 MG/ML 1ML AMP IM PRN; -NS 1,000 ML IV SCH
== END ==
LOC: M LAB REF 15:27
PROVIDERS: ATTEND Family Medicine
DX: H10.023 Other mucopurulent conjunctivitis, bilateral (principal); B95.3 Streptococcus pneumoniae as the cause of diseases classified elsewhere

== ENCOUNTER 2023-11-01 15:12 | Outpatient (CLI) | payer OTHER ==
[~2023-11-01] VITALS: Ht 160 cm; Wt 104.5 kg
[~2023-11-01 15:12] MED LIST changes: +ALBUTEROL SULFATE 2.5MG/0.5ML INH NEB SOLN INH PRN; +EPINEPHrine INJ 1 MG/ML 1ML AMP IM PRN; +diphenhydrAMINE 50MG/ML VIAL IV PRN; +methylPREDNISolone 125MG 2ML VIAL IV PRN
[2023-11-01 15:25] VITALS: BP 130/67; O2SAT 96
[2023-11-01] MEDS ORDERED: NS 1,000 ML IV SCH (15:30)
[2023-11-01] MEDS: NATALIZUMAB OVER 1 HOUR IV ONE (16:08)
[2023-11-01 17:20] VITALS: BP 124/80; O2SAT 100
== END 2023-11-01 15:20 ==
LOC: M INFU 15:12
PROVIDERS: ATTEND Physician Assistant
DX: G35 Multiple sclerosis (principal)
CPT/HCPCS: 96365; J2323

== ENCOUNTER 2023-11-29 15:13 | Outpatient (CLI) | payer OTHER ==
[~2023-11-29 15:13] MED LIST changes: +BUPR-597 PO; -BUPR300T92 PO; +NS 1,000 ML IV SCH
[2023-11-29 15:20] VITALS: BP 123/70; O2SAT 98
[2023-11-29] MEDS: NATALIZUMAB OVER 1 HOUR IV ONE (15:32)
== END 2023-11-29 16:40 | disposition home or self-care (01) ==
LOC: M INFU 15:13
PROVIDERS: ATTEND Physician Assistant
DX: G35 Multiple sclerosis (principal)
CPT/HCPCS: 96365; J2323

== ENCOUNTER 2023-12-27 15:04 | Outpatient (CLI) | payer BC, OTHER ==
[~2023-12-27] VITALS: Ht 160 cm; Wt 105.4 kg
[~2023-12-27 15:04] MED LIST changes: +FLUO-365 PO; -FLUO20CA22 PO
[2023-12-27 15:30] VITALS: BP 131/80; O2SAT 97
[2023-12-27] MEDS: NATALIZUMAB OVER 1 HOUR IV ONE (15:35)
== END 2023-12-27 16:45 ==
LOC: M INFU 15:04
PROVIDERS: ATTEND Physician Assistant
DX: G35 Multiple sclerosis (principal)
CPT/HCPCS: 96365; J2323

== ENCOUNTER 2024-01-23 15:16 | Outpatient (CLI) | payer BC, OTHER ==
[~2024-01-23] VITALS: Ht 160 cm; Wt 105.9 kg
[2024-01-23 15:25] VITALS: BP 129/75; O2SAT 96
[2024-01-23] MEDS: NATALIZUMAB OVER 1 HOUR IV ONE (15:39)
[2024-01-23 16:45] VITALS: BP 136/82; O2SAT 98
== END 2024-01-23 16:45 ==
LOC: M INFU 15:16
PROVIDERS: ATTEND Physician Assistant
DX: G35 Multiple sclerosis (principal)
CPT/HCPCS: 96365; J2323

== ENCOUNTER 2024-03-05 15:25 | Outpatient (CLI) | payer OTHER ==
[~2024-03-05] VITALS: Ht 162.6 cm; Wt 106.8 kg
[2024-03-05 15:20] VITALS: BP 124/68; O2SAT 100
[~2024-03-05 15:25] MED LIST changes: -FEXO-157 PO; +FEXO-63 PO; -NS 1,000 ML IV SCH
[2024-03-05] MEDS ORDERED: NS 1,000 ML IV SCH (15:30)
[2024-03-05] MEDS: NATALIZUMAB OVER 1 HOUR IV ONE (16:28)
[2024-03-05 17:45] VITALS: BP 131/80; O2SAT 96
== END 2024-03-05 17:45 ==
LOC: M INFU 15:25
PROVIDERS: ATTEND Physician Assistant
DX: G35 Multiple sclerosis (principal)
CPT/HCPCS: 96365; J2323

== ENCOUNTER 2024-04-16 15:20 | Outpatient (CLI) | payer OTHER ==
[~2024-04-16] VITALS: Ht 162.6 cm; Wt 107.0 kg
[~2024-04-16 15:20] MED LIST changes: +NS 1,000 ML IV SCH
[2024-04-16 15:30] VITALS: BP 120/70; O2SAT 96
[2024-04-16] MEDS: NATALIZUMAB OVER 1 HOUR IV ONE (16:09)
[2024-04-16 17:15] VITALS: BP 136/72; O2SAT 99
== END 2024-04-16 17:15 ==
LOC: M INFU 15:20
PROVIDERS: ATTEND Physician Assistant
DX: G35 Multiple sclerosis (principal)
CPT/HCPCS: 96365; J2323

== ENCOUNTER → 2024-05-12 | Outpatient (CLI) | payer OTHER ==
[~2024-05-12] MED LIST changes: -ALBUTEROL SULFATE 2.5MG/0.5ML INH NEB SOLN INH PRN; -EPINEPHrine INJ 1 MG/ML 1ML AMP IM PRN; -NS 1,000 ML IV SCH; -diphenhydrAMINE 50MG/ML VIAL IV PRN; -methylPREDNISolone 125MG 2ML VIAL IV PRN
== END ==
LOC: M LAB 11:54
PROVIDERS: ATTEND Physician Assistant
DX: R20.0 Anesthesia of skin (principal); G35 Multiple sclerosis

== ENCOUNTER → 2024-05-12 | Outpatient (CLI) | payer OTHER ==
[2024-05-12 13:37] LABS: FREE T4 1.29 NG/DL (0.89-1.76); THYROID STIMULATING HORMONE 4.441 uIU/ML (0.55-4.78)
== END ==
LOC: M LAB 11:56
PROVIDERS: ATTEND Nurse Practitioner Adult Health
DX: E06.3 Autoimmune thyroiditis (principal)

== ENCOUNTER 2024-05-28 15:12 | Outpatient (CLI) | payer BC, OTHER ==
[~2024-05-28] VITALS: Ht 160 cm; Wt 103.6 kg
[~2024-05-28 15:12] MED LIST changes: +ALBUTEROL SULFATE 2.5MG/0.5ML INH NEB SOLN INH PRN; +EPINEPHrine INJ 1 MG/ML 1ML AMP IM PRN; +NS 1,000 ML IV SCH; +diphenhydrAMINE 50MG/ML VIAL IV PRN; +methylPREDNISolone 125MG 2ML VIAL IV PRN
[2024-05-28 15:20] VITALS: BP 118/70; O2SAT 98
[2024-05-28] MEDS: NATALIZUMAB OVER 1 HOUR IV ONE (16:12)
[2024-05-28 17:21] VITALS: BP 121/67; O2SAT 98
== END 2024-05-28 17:25 ==
LOC: M INFU 15:12
PROVIDERS: ATTEND Physician Assistant
DX: G35 Multiple sclerosis (principal)
CPT/HCPCS: 96365; J2323

== ENCOUNTER 2024-07-09 15:20 | Outpatient (CLI) | payer OTHER ==
[~2024-07-09] VITALS: Ht 160 cm; Wt 102.3 kg
[2024-07-09 15:20] VITALS: BP 124/74; O2SAT 97
[~2024-07-09 15:20] MED LIST changes: -NS 1,000 ML IV SCH
[2024-07-09] MEDS: NATALIZUMAB OVER 1 HOUR IV ONE (15:52)
[2024-07-09 16:58] VITALS: BP 126/73; O2SAT 99
== END 2024-07-09 17:00 ==
LOC: M INFU 15:20
PROVIDERS: ATTEND Physician Assistant
DX: G35 Multiple sclerosis (principal)
CPT/HCPCS: 96365; J2323

== ENCOUNTER 2024-08-20 15:00 | Outpatient (CLI) | payer BC, OTHER ==
[~2024-08-20] VITALS: Ht 160 cm; Wt 103.6 kg
[~2024-08-20 15:00] MED LIST changes: +NS (Normal Saline) 0.9% 1,000 ML IV SCH
[2024-08-20 15:15] VITALS: BP 97/60; O2SAT 96
[2024-08-20] MEDS: NATALIZUMAB OVER 1 HOUR IV ONE (15:54)
[2024-08-20 17:00] VITALS: BP 106/67; O2SAT 97
== END 2024-08-20 17:00 ==
LOC: M INFU 15:00
PROVIDERS: ATTEND Physician Assistant
DX: G35 Multiple sclerosis (principal)
CPT/HCPCS: 96365; J2323

== ENCOUNTER 2024-10-01 15:17 | Outpatient (CLI) | payer BC, OTHER ==
[~2024-10-01] VITALS: Ht 160 cm; Wt 103.2 kg
[2024-10-01 15:30] VITALS: BP 119/69; O2SAT 97
[2024-10-01] MEDS: NATALIZUMAB OVER 1 HOUR IV ONE (16:04)
[2024-10-01 17:10] VITALS: BP 109/59; O2SAT 100
== END 2024-10-01 17:10 ==
LOC: M INFU 15:17
PROVIDERS: ATTEND Physician Assistant
DX: G35 Multiple sclerosis (principal)
CPT/HCPCS: 96365; J2323

== ENCOUNTER 2024-11-19 15:11 | Outpatient (CLI) | payer OTHER ==
[~2024-11-19] VITALS: Ht 160 cm; Wt 100.5 kg
[~2024-11-19 15:11] MED LIST changes: +ALBUTEROL SULFATE 2.5MG/0.5ML INH CONCENTRATE NEB SOLN INH PRN; -ALBUTEROL SULFATE 2.5MG/0.5ML INH NEB SOLN INH PRN; -BUPR-597 PO; +BUPR-766 PO
[2024-11-19 15:20] VITALS: BP 119/71; O2SAT 95
[2024-11-19] MEDS: NATALIZUMAB OVER 1 HOUR IV ONE (16:02)
[2024-11-19 17:20] VITALS: BP 142/88; TEMP 37.2; O2SAT 98
== END 2024-11-19 17:20 | disposition home or self-care (01) ==
LOC: M INFU 15:11
PROVIDERS: ATTEND Physician Assistant
DX: G35 Multiple sclerosis (principal)
CPT/HCPCS: 96365; J2323

== ENCOUNTER 2025-02-11 15:20 | Outpatient (CLI) | payer OTHER ==
[~2025-02-11] VITALS: Ht 160 cm; Wt 98.0 kg
[~2025-02-11 15:20] MED LIST changes: +ALBUTEROL SULFATE 2.5 MG/0.5 ML INH CONCENTRATE NEB SOLN INH PRN; -ALBUTEROL SULFATE 2.5MG/0.5ML INH CONCENTRATE NEB SOLN INH PRN; +diphenhydrAMINE 50 MG/ML VIAL IV PRN; -diphenhydrAMINE 50MG/ML VIAL IV PRN; -methylPREDNISolone 125MG 2ML VIAL IV PRN
[2025-02-11 15:51] VITALS: BP 121/74; O2SAT 99
[2025-02-11] MEDS: NATALIZUMAB OVER 1 HOUR IV ONE (15:58)
[2025-02-11 17:03] VITALS: BP 119/74; O2SAT 99
== END 2025-02-11 17:05 ==
LOC: M INFU 15:20
PROVIDERS: ATTEND Physician Assistant
DX: G35 Multiple sclerosis (principal)
CPT/HCPCS: 96365; J2323

== ENCOUNTER → 2025-03-25 | Outpatient (CLI) | payer OTHER ==
[~2025-03-25] VITALS: Ht 162.6 cm; Wt 99.0 kg
[2025-03-25 15:30] VITALS: BP 118/71; O2SAT 98
[2025-03-25] MEDS: NATALIZUMAB OVER 1 HOUR IV ONE (16:17)
[2025-03-25 17:20] VITALS: BP 122/75; O2SAT 98
== END ==
LOC: M INFU 15:24
PROVIDERS: ATTEND Physician Assistant
DX: G35 Multiple sclerosis (principal)
CPT/HCPCS: 96365; J2323

== ENCOUNTER 2025-05-06 15:44 | Outpatient (CLI) | payer OTHER ==
[~2025-05-06] VITALS: Ht 162.6 cm; Wt 99.0 kg
[2025-05-06] MEDS: NATALIZUMAB OVER 1 HOUR IV ONE (15:53)
[2025-05-06 15:54] VITALS: BP 130/64; O2SAT 100
[2025-05-06 16:57] VITALS: BP 116/60; O2SAT 98
== END 2025-05-06 16:59 ==
LOC: M INFU 15:44
PROVIDERS: ATTEND Physician Assistant
DX: G35.D Multiple sclerosis, unspecified (principal)
CPT/HCPCS: 96365; J2323

== ENCOUNTER 2025-06-17 15:22 | Outpatient (CLI) | payer OTHER ==
[2025-06-17 15:15] VITALS: BP 125/63; O2SAT 97
[2025-06-17] MEDS: NATALIZUMAB OVER 1 HOUR IV ONE (16:11)
[2025-06-17 17:14] VITALS: BP 122/72; O2SAT 98
== END 2025-06-17 17:10 | disposition home or self-care (01) ==
LOC: M INFU 15:22
PROVIDERS: ATTEND Physician Assistant
DX: G35.D Multiple sclerosis, unspecified (principal)
CPT/HCPCS: 96365; J2323